=== PATIENT | female | born 1990 | race Caucasian/White ===

== ENCOUNTER 2016-02-17 17:48 | Inpatient (IN) | payer MEDICAID ==
[~2016-02-17] VITALS: Ht 157.5 cm; Wt 79.2 kg
[2016-02-17] MEDS ORDERED: LORAZEPAM 0.5 MG TAB ONE (19:28)
[2016-02-17 22:10] VITALS: BP_SYST 105; RESP 18; TEMP 98.5
[2016-02-17] MEDS ORDERED: DIPHENHYDRAMINE 50 MG CAP PO PRN (22:20)
[2016-02-17] MEDS ORDERED: ALU/MAG/SIM 30 ML UDC PO PRN (22:20)
[2016-02-17] MEDS ORDERED: DIPHENHYDRAMINE 50 MG/ML VIAL IM PRN (22:20)
[2016-02-17] MEDS ORDERED: LORAZEPAM 2 MG/ML VIAL IM PRN (22:20)
[2016-02-17] MEDS ORDERED: MAG HYDROX 30 ML UDC PO PRN (22:20)
[2016-02-17] MEDS ORDERED: LORAZEPAM 2 MG TAB PO PRN (22:20)
[2016-02-17 22:21] VITALS: Ht 157.5 cm; Wt 79.2 kg
[2016-02-17] MEDS: PHENobarbital 30 MG TAB PO SCH (23:34)
[2016-02-18] MEDS ORDERED: *PINK BRACELET XX ONE (01:20)
[2016-02-18] MEDS: *HOME MEDS KEPT IN PHARMACY XX SCH ×2 (07:13→20:00)
[2016-02-18 08:09] VITALS: BP_SYST 92; RESP 18; TEMP 98.2
[2016-02-18] MEDS: PHENobarbital 30 MG TAB PO SCH ×2 (08:56→20:24)
[2016-02-18] MEDS: NICOTINE 21 MG/24 HR TRANSDERM SCH (08:56)
[2016-02-18] MEDS: MULTIVITS/MINERALS (THERAGRAN M) TAB PO SCH (08:56)
[2016-02-18] MEDS ORDERED: INVEGA SUSTENNA IM ONE ×3 (11:30→14:45)
[2016-02-18] MEDS: BUSPIRONE HCL 15 MG TAB PO SCH ×3 (11:53→20:24)
[2016-02-18] MEDS: FLUOXETINE 20 MG CAP PO SCH (11:53)
[2016-02-18] MEDS: PANTOPRAZOLE 40 MG TAB PO SCH (11:53)
[2016-02-18] MEDS: Furosemide 20 MG TAB PO SCH (11:53)
[2016-02-18 17:07] VITALS: BP_SYST 114; RESP 18; TEMP 98.8
[2016-02-18 19:10] VITALS: BP_SYST 111; RESP 18; TEMP 98.7
[2016-02-18] MEDS: TOPIRAMATE 25 MG TAB PO SCH (20:24)
[2016-02-18] MEDS: VORTIOXETINE 10 MG PO SCH (20:24)
[2016-02-18] MEDS: TRAZODONE 50 MG TAB PO PRN (20:35)
[2016-02-19] MEDS: PANTOPRAZOLE 40 MG TAB PO SCH (06:18)
[2016-02-19 07:00] VITALS: BP_SYST 103; RESP 16; TEMP 98.7
[2016-02-19] MEDS: *HOME MEDS KEPT IN PHARMACY XX SCH ×2 (08:00→20:00)
[2016-02-19] MEDS: FLUOXETINE 20 MG CAP PO SCH (08:23)
[2016-02-19] MEDS: Furosemide 20 MG TAB PO SCH (08:23)
[2016-02-19] MEDS: MULTIVITS/MINERALS (THERAGRAN M) TAB PO SCH (08:23)
[2016-02-19] MEDS: PHENobarbital 30 MG TAB PO SCH ×2 (08:23→21:15)
[2016-02-19] MEDS: BUSPIRONE HCL 15 MG TAB PO SCH ×3 (08:23→21:15)
[2016-02-19] MEDS: NICOTINE 21 MG/24 HR TRANSDERM SCH (08:23)
[2016-02-19] MEDS ORDERED: BUSPIRONE HCL 15 MG TAB PO SCH (10:20)
[2016-02-19] MEDS: NAPROXEN SOD 220 MG PO PRN ×2 (11:18→20:59)
[2016-02-19] MEDS ORDERED: CHLORPROMAZINE 25 MG TAB PO ONE (12:25)
[2016-02-19] MEDS ORDERED: CHLORPROMAZINE 25 MG TAB PO PRN (12:25)
[2016-02-19 19:02] VITALS: BP_SYST 110; RESP 16; TEMP 98.6
[2016-02-19] MEDS: TRAZODONE 50 MG TAB PO PRN (21:15)
[2016-02-19] MEDS: VORTIOXETINE 10 MG PO SCH (21:15)
[2016-02-19] MEDS: TOPIRAMATE 25 MG TAB PO SCH (21:15)
[2016-02-20] MEDS: *HOME MEDS KEPT IN PHARMACY XX SCH ×2 (08:00→19:43)
[2016-02-20 08:20] VITALS: BP_SYST 100; RESP 18; TEMP 97.6
[2016-02-20] MEDS: PANTOPRAZOLE 40 MG TAB PO SCH (08:24)
[2016-02-20] MEDS: FLUOXETINE 20 MG CAP PO SCH (08:46)
[2016-02-20] MEDS: PHENobarbital 30 MG TAB PO SCH ×2 (08:46→21:00)
[2016-02-20] MEDS: MULTIVITS/MINERALS (THERAGRAN M) TAB PO SCH (08:46)
[2016-02-20] MEDS: BUSPIRONE HCL 15 MG TAB PO SCH ×3 (08:46→21:00)
[2016-02-20] MEDS: Furosemide 20 MG TAB PO SCH (08:46)
[2016-02-20] MEDS: NICOTINE 21 MG/24 HR TRANSDERM SCH (08:47)
[2016-02-20] MEDS: CHLORPROMAZINE 25 MG TAB PO SCH ×2 (10:22→21:00)
[2016-02-20 19:00] VITALS: BP_SYST 111; RESP 16; TEMP 98.3
[2016-02-20] MEDS: TOPIRAMATE 25 MG TAB PO SCH (21:00)
[2016-02-20] MEDS: VORTIOXETINE 10 MG PO SCH (21:00)
[2016-02-21] MEDS: PANTOPRAZOLE 40 MG TAB PO SCH (07:28)
[2016-02-21] MEDS: *HOME MEDS KEPT IN PHARMACY XX SCH ×2 (08:00→21:01)
[2016-02-21 08:23] VITALS: BP_SYST 97; RESP 18; TEMP 98.4
[2016-02-21] MEDS: MULTIVITS/MINERALS (THERAGRAN M) TAB PO SCH (08:58)
[2016-02-21] MEDS: CHLORPROMAZINE 25 MG TAB PO SCH ×2 (08:58→20:57)
[2016-02-21] MEDS: PHENobarbital 30 MG TAB PO SCH ×2 (08:58→20:56)
[2016-02-21] MEDS: Furosemide 20 MG TAB PO SCH (08:58)
[2016-02-21] MEDS: BUSPIRONE HCL 15 MG TAB PO SCH ×3 (08:58→20:56)
[2016-02-21] MEDS: NICOTINE 21 MG/24 HR TRANSDERM SCH (08:59)
[2016-02-21 15:27] VITALS: TEMP 97.4
[2016-02-21] MEDS ORDERED: ONDANSETRON 4 MG TAB PO PRN ×2 (16:30→22:20)
[2016-02-21 19:00] VITALS: BP_SYST 99; RESP 18; TEMP 98.5
[2016-02-21] MEDS: VORTIOXETINE 10 MG PO SCH (20:57)
[2016-02-21] MEDS: TOPIRAMATE 25 MG TAB PO SCH (20:57)
[2016-02-21] MEDS: TRAZODONE 50 MG TAB PO PRN (20:58)
[2016-02-21] MEDS ORDERED: OMNIPAQUE 240 MG/ML, 50 ML PO SCH (22:15)
[2016-02-21] MEDS ORDERED: BARIUM 450 ML ORAL SUSP PO ONE ×2 (22:20)
[2016-02-21] MEDS ORDERED: MISSING DOSE XX ONE (22:20)
[2016-02-21] MEDS: NAPROXEN SOD 220 MG PO PRN (22:40)
[2016-02-22] MEDS: PANTOPRAZOLE 40 MG TAB PO SCH (06:22)
[2016-02-22] MEDS: Furosemide 20 MG TAB PO SCH (09:00)
[2016-02-22] MEDS: NICOTINE 21 MG/24 HR TRANSDERM SCH (09:00)
[2016-02-22] MEDS: MULTIVITS/MINERALS (THERAGRAN M) TAB PO SCH (09:00)
[2016-02-22] MEDS: PHENobarbital 30 MG TAB PO SCH (09:00)
[2016-02-22] MEDS: CHLORPROMAZINE 25 MG TAB PO SCH (09:00)
[2016-02-22] MEDS: BUSPIRONE HCL 15 MG TAB PO SCH (09:00)
[2016-02-22 09:12] VITALS: BP_SYST 110; RESP 18; TEMP 98.8
== END 2016-02-22 13:25 | disposition home or self-care (01) | DRG 885 ==
LOC: ENRESERVTM → ENRESERVDT → ENRESERV → ER 17:48 → EMR 20:58 → PSY 21:43
PROVIDERS: ADMIT Psychiatry & Neurology Psychiatry; ATTEND Psychiatry & Neurology Psychiatry
CPT/HCPCS: 74176; 81003; 87088

== ENCOUNTER 2016-03-04 02:30 | Emergency (ER) | payer MEDICAID | END 2016-03-04 05:29 | disposition home or self-care (01) | LOC: ER 02:30 | DX: G40.309 Generalized idiopathic epilepsy and epileptic syndromes, not intractable, without status epilepticus (principal); S60.212A Contusion of left wrist, initial encounter; Z79.899 Other long term (current) drug therapy; I10 Essential (primary) hypertension; I48.91 Unspecified atrial fibrillation; J45.909 Unspecified asthma, uncomplicated; F32.9 Major depressive disorder, single episode, unspecified; Z91.040 Latex allergy status | CPT/HCPCS: 36415; 80053; 81001; 82947; 85025 ==